=== PATIENT | female | born 1975 | race Caucasian/White ===

== ENCOUNTER 2018-10-04 07:56 | Day surgery (SDC) | payer OTHER ==
[2018-10-04] MEDS ORDERED: PROPOFOL 20 ML (10:37)
[2018-10-04] MEDS ORDERED: FENTAnyl 50 MCG/ML VIAL (10:37)
[2018-10-04] MEDS ORDERED: ONDANSETRON 4 MG INJ IV (11:00)
== END 2018-10-04 12:51 | disposition home or self-care (01) ==
LOC: GIL 07:56
DX: K64.0 First degree hemorrhoids (principal); K25.9 Gastric ulcer, unspecified as acute or chronic, without hemorrhage or perforation; K29.50 Unspecified chronic gastritis without bleeding
CPT/HCPCS: 43235; 84703

== ENCOUNTER 2018-12-30 11:45 | Day surgery (SDC) | payer OTHER ==
[2018-12-30] MEDS ORDERED: OXYCODONE/ACETAMINOPHEN (5/325) TAB PO ×2 (14:00)
[2018-12-30] MEDS ORDERED: LABETALOL HCL 20MG INJ IV (14:00)
[2018-12-30] MEDS ORDERED: ONDANSETRON 4 MG INJ IV (14:00)
[2018-12-30] MEDS ORDERED: HYDROmorphONE 1 MG/5 ML IV SYRINGE IV ×3 (14:00)
[2018-12-30] MEDS ORDERED: DIPHENHYDRAMINE 50 MG INJ IV (14:00)
[2018-12-30] MEDS ORDERED: ALBUTEROL 0.083% (NEB) 2.5 MG/3 ML AMP HHN (14:00)
[2018-12-30] MEDS ORDERED: MEPERIDINE 25 MG INJ IV (14:00)
[2018-12-30] MEDS ORDERED: FENTAnyl 50 MCG/ML VIAL IV ×3 (14:00)
[2018-12-30] MEDS ORDERED: hydrALAzine 20 MG INJ IV (14:00)
[2018-12-30] MEDS ORDERED: TRIMETHOBENZAMIDE 100 MG/ML VIAL IM (14:00)
[2018-12-30] MEDS ORDERED: EPHEDrine 25 MG/5 ML SYG IV (14:00)
[2018-12-30] MEDS ORDERED: MIDAZOLAM 1 MG/ML 2 ML INJ IV (14:00)
[2018-12-30] MEDS ORDERED: IPRATROPIUM (NEB) 0.5 MG/2.5 ML AMP HHN (14:00)
[2018-12-30] MEDS ORDERED: PROPOFOL 20 ML (15:06)
[2018-12-30] MEDS ORDERED: ETOMIDATE 20 MG INJ (15:08)
== END 2018-12-30 17:46 | disposition home or self-care (01) ==
LOC: GIL 11:45
DX: K29.70 Gastritis, unspecified, without bleeding (principal)
CPT/HCPCS: 43239; 88305; 88312